=== PATIENT | female | born 1990 | race Two or more races ===

== ENCOUNTER 2020-11-02 15:26 | Emergency (ER) | payer MEDICAID ==
[~2020-11-02] VITALS: Ht 167.6 cm; Wt 60.0 kg
[2020-11-02 16:24] VITALS: BP 106/76
== END 2020-11-02 17:48 | disposition home or self-care (01) ==
LOC: EMS 15:26
DX: F20.9 Schizophrenia, unspecified (principal); F17.210 Nicotine dependence, cigarettes, uncomplicated
CPT/HCPCS: 99285; Z7502